=== PATIENT | male | born 1955 | race Caucasian/White ===

== ENCOUNTER 2020-08-06 18:11 | Emergency (ER) | payer MEDICARE, BC, SELFPAY ==
--- NOTE | ~2020-08-06 | CT_ITS ---
EXAMINATION: NONCONTRAST HEAD CT NONCONTRAST CERVICAL SPINE CT INDICATION INFORMATION: Fall. Crush injury. COMPARISON: None TECHNIQUE: Separate noncontrast CT examinations of the head and cervical spine were performed. Coronal and sagittal images were created for each examination at the technologist workstation. This CT examination was performed using dose optimization techniques as appropriate, variously including the following: *Automated exposure control *Adjustment of mA and/or kV according to patient size (this includes techniques or standardized protocols for targeted exams where dose is matched to indication/reason for exam; i.e. extremities or head) *Use of iterative reconstruction technique DLP: 1166 mGy-cm FINDINGS: Head: There is no evidence of acute intracranial hemorrhage or territorial infarction. No abnormal mass effect or midline shift is seen. [place] to white matter differentiation is well preserved. No extra-axial fluid collections are identified. No hydrocephalus. No significant volume loss. There is no abnormal attenuation within the brain parenchyma. No acute osseous or soft tissue abnormality. The mastoid air cells and visualized portions of the paranasal sinuses are well aerated. Cervical spine: There is anatomic alignment of the vertebral bodies and posterior elements. The atlantoaxial and atlantooccipital articulations are intact. Vertebral body heights are maintained. There is multilevel intervertebral disc space narrowing with endplate osteophyte formation and facet arthropathy. Left facet fusion at C3-C4. No evidence of acute fracture. No prevertebral soft tissue swelling. Visualized portions of the lung apices are unremarkable. The thyroid gland is unremarkable. CT/CT cervical spine wo con IMPRESSION: 1. No acute intracranial finding. 2. No fracture or malalignment of the cervical spine. Mild degenerative changes.
--- NOTE | ~2020-08-06 | CT_ITS ---
EXAMINATION: CT CHEST, ABDOMEN AND PELVIS WITH CONTRAST CLINICAL INFORMATION: Trauma COMPARISON: None. TECHNIQUE: Multidetector volumetric CT imaging of the chest, abdomen and pelvis was obtained after the administration of 85 mL of intravenous Omnipaque 350 without immediate adverse reactions. [This CT examination was performed using dose optimization techniques as appropriate, variously including the following: *Automated exposure control *Adjustment of mA and/or kV according to patient size (this includes techniques or standardized protocols for targeted exams where dose is matched to indication/reason for exam; i.e. extremities or head) *Use of iterative reconstruction technique] DLP: 1326 mGy-cm. FINDINGS: CT CHEST: Lungs: Linear atelectasis at both lung bases. Central bronchial airways are open. Mediastinum: Heart size is normal. No pericardial effusion. Heavy calcification of coronary arteries. Moderate calcification of thoracic aorta. No aneurysm or dissection of aorta. Shotty subcentimeter lymph nodes in the pretracheal retrovascular space. No significant lymphadenopathy. Thyroid is unremarkable. Pleura: There is no pleural effusion. No pleural mass or thickening. Axilla: No lymphadenopathy. CT ABDOMEN AND PELVIS: Liver, Gallbladder and Biliary Tree: The liver is normal in size, shape, and attenuation. No focal hepatic lesion or biliary ductal dilatation is present. The gallbladder is unremarkable with no evidence of radiopaque gallstones, gallbladder wall thickening, or obvious pericholecystic inflammatory changes. Pancreas: No acute change of the pancreas. No mass. No pancreatic duct dilatation. Spleen: Spleen normal in size and contour. No focal lesion. Adrenal Glands: Adrenal glands are normal in size. No focal mass. Kidneys and Ureters: The kidneys are normal in size, shape, and attenuation. No hydronephrosis, hydroureter, or calculi seen. No perinephric stranding. Bladder: Unremarkable. Gastrointestinal Tract: Status post right hemicolectomy. Colonic enteric anastomosis at the hepatic flexure intact. No acute abnormality of the bowel. There are scattered diverticula of the sigmoid colon and left colon. There is no diverticulitis. There is no bowel wall thickening /edema. There is no bowel obstruction. There is a moderate volume of stool in the colon. The small bowel loops are unremarkable. The stomach is normal. There is no hiatal hernia. Mesentery: No focal inflammation. No free fluid. No free air. Abdominal Wall: No significant hernia is appreciated. Lymph Nodes: Normal. Vascular: Scattered vascular calcifications of the wall of aorta. There is no aneurysm. Pelvic Viscera: Unremarkable. Osseous Structures: No displaced fracture. There is however a nondisplaced cortical fracture of the left anterior fifth rib. There is degenerative spondylosis of the spine. There is significant disc height narrowing, vacuum disc phenomena, endplate spurs and endplate spurring at L1-L2 and L2-L3 discs levels. CT/CT abdomen pelvis w con IMPRESSION: 1. Dependent atelectasis both lung bases. 2. There is a nondisplaced fracture of the left anterior fifth rib. There is no other fracture of the chest, abdomen or pelvis. 3. No acute abnormality of the abdomen or pelvis.
[2020-08-06 20:19] VITALS: BP 136/80; PULSE 70; RESP 18; TEMP 37.7; O2SAT 95
[2020-08-06 20:33] VITALS: BP 136/80; PULSE 70; RESP 16; TEMP 37.7; O2SAT 98; BMI 27.8
--- NOTE | 2020-08-06 21:44 | ED_ITS ---
HPI - Fall General Chief Complaint: Fall Stated Complaint: fall Source: patient Mode of arrival: ambulatory Limitations: no limitations History of Present Illness HPI Narrative: 64-year-old male presents for chest pain and neck pain after a slip and fall on the ice. He was carrying a television, slipped, fell backw ards, and the television landed on his chest and abdomen. It is difficult for him to move, take a deep breath, the pain radiates across his abdomen at the epigastric and diaphragmatic area. He does not report losing consciousness, hitting his head, denies lower back pain, symptoms indicating cauda equina, loss of sensation to the extremities, changes in vision, headache, loss of hearing, nausea, vomiting, fevers or chills. MD complaint: fall Onset (ago): hour(s) (Within the hour of arrival) Fall from: standing Fall witnessed: yes, by family Place fall occurred: home Loss of consciousness: none Prolonged down time: no Symptoms prior to fall: none Context: tripped/slipped Location of injury: neck, chest and abdomen Severity: severe Severity scale (1-10): 10 Quality: sharp, stabbing and aching Associated symptoms (after fall): neck pain, chest pain and abdominal pain Related Data Previous Rx's Medication Instructions Recorded oxycodone 5 mg PO Q6H PRN #20 tab 08/07/20 polyethylene glycol 3350 [Miralax] 17 g PO BID #510 g 08/07/20 Allergies Allergy/AdvReac Type Severity Reaction Status Date / Time No Known Allergies Allergy Unverified 03/04/20 18:25 Review of Systems Review of Systems: Constitutional: No Fever, No Chills ENT/Mouth: No Ear Pain, No Hoarseness, No sore throat Eyes: No Eye Pain, No Swelling, No Redness, No Foreign Body Cardiovascular: No Chest Pain, No SOB Respiratory: No Cough, No Dyspnea Gastrointestinal: No Nausea, No Vomiting, No Diarrhea, No abdominal Pain Genitourinary: No Dysuria, No Hematuria Musculoskeletal: positive chest, abdomen and neck pain, No Myalgias, No Joint Swelling Skin: No Skin lacerations, No rash Neuro: No Weakness, No Numbness, No Paresthesias, No Loss of Consciousness, No Dizziness, No Headache Psych: No Anxiety/Panic, No Depression Heme/Lymph: no easy bruising, no Lymphadenopathy Endocrine: No Polyuria, No Polydipsia Yes all other systems are reviewed and are negative [facility] [place] Past Medical History Attestation statement: The following information was validated with the patient. Source: old records reviewed Surgical History History of colon surgery Hx of appendectomy Hx of heart artery stent Social History Social History Advance Directives: No Advance Directives Information Provided: Yes Physical Exam Vital Signs: Vital Signs: Last Vital Signs Temp 99.8 F 08/06/20 20:33 Pulse 71 08/07/20 00:00 Resp 18 08/07/20 00:00 BP 158/92 H 08/07/20 00:00 Pulse Ox 99 08/07/20 00:00 Body Mass Index 27.8 Appearance: Alert. Oriented X3. Moderate distress. Head: Normal external exam. Normocephalic. Atraumatic. No Bacon signs noted. No raccoon eyes noted Eyes: PERRLA. EOMI. Conjunctiva and sclera normal. Eyelids normal. ENT: TM's Normal. Pharynx normal. Uvula midline. Moist mucous membranes. No tr ismus noted. No drooling noted. No muffled voice noted. Neck: Normal inspection. Neck supple. No adenopathy. Thyroid Normal. No meningeal signs. No neck mass noted. No vertebral tenderness noted, no step- off. Pain to sternocleidomastoid muscles. CVS: Normal heart rate and rhythm. Heart sound normal. No murmurs noted. Pulses equal to all extremities. Respiratory: Chest wall tenderness to palpation, particularly over the epigastric and right ribs at the midclavicular line 5th intercostal space, No respiratory distress. Painless inspiration. Breath sounds normal. No wheezes/rales/rhonchi noted. No accessory muscle usage noted or decreased air movement noted. Abdomen: Soft and tender to palpation right upper epigastric left upper quadrants, Bowel sounds normal in all 4 quadrants. No distention noted. No organomegaly noted. No visible injury noted. Back: Positive bilateral CVA tenderness. Decreased range of motion secondary to pain flexion extension and turning to the right Skin: Skin warm and dry. Normal skin color. Normal skin turgor. No rashes/lesions/lacerations noted. Extremities: No lower extremity edema. Extremities exhibit normal range of motion. Extremities nontender. Neuro: cranial nerves 2-12 intact, no focal neural deficits, strength 5/5 to all extremities, No motor deficit. No sensory deficit. Patellar Reflexes normal. Course Course Course Narrative: 64-year-old male presents with neck pain, chest pain, pain across the diaphragm after a slip and fall on the ice. He was carrying a large television, his feet went out from under him landed on his back and the television crushed his chest and abdomen. He does not report hitting his head or losing consciousness but has significant tenderness to palpation to the left chest wall, epigastric, right upper quadrant and left upper quadrant of the abdomen. Based on the significance of his injury we will order CT scan of the head, cervical spine, chest and abdomen. CT of head, cervical spine and abdomen negative for acute findings. CT of chest shows left 5th rib fracture. Will treat with opioid for pain management, detailed description regarding risks and benefits of this medication discussed with patient. Patient will follow-up with primary care physician later this week. MDM - Fall Differential Diagnosis Differential diagnosis: Likely fracture, compression fracture and concussion without loss of consciousness Medical Records Attestation: I reviewed the patient's medical records. Lab Data Attestation: I reviewed the patient's lab results. Result diagrams: 08/06/20 22:05 08/06/20 22:05 Labs: Lab Results 08/06/20 08/06/20 08/06/20 Range/Units 22:05 22:05 22:05 WBC 9.7 (4.8-10.8) X10*3/uL RBC 5.15 (4.60-5.80) X10*6/uL Hgb 15.5 (14.0-18.0) g/dl Hct 46.0 (42-52) % MCV 89.3 (80-98) fL MCH 30.1 (27.0-33.0) pg MCHC 33.7 (31.0-36.0) g/dl RDW 14.4 (11.0-16.0) % Plt Count 363 (160-400) X10*3/uL MPV 9.1 L (9.4-12.4) fL Immature Gran % (Auto) 0.3 (0.0-0.4) % Neut % (Auto) 78.0 H (45-73) % Lymph % (Auto) 12.8 L (20-40) % [place] % (Auto) 7.9 (2-11) % Eos % (Auto) 0.5 (0-4) % Baso % (Auto) 0.5 (0-2) % Lymph # (Auto) 1.2 (1.2-4.9) X10*3/uL [place] # (Auto) 0.8 (0.1-1.2) X10*3/uL Eos # (Auto) 0.1 (0.0-0.4) X10*3/uL Baso # (Auto) 0.1 (0.0-0.2) X10*3/uL Abs Immat Gran (auto) 0.03 (0.00-0.03) X10*3/uL Absolute Neuts (auto) 7.6 (2.0-8.3) X10*3/uL Absolute Nucleated RBC 0.000 (0.0-0.012) X10*3/uL Nucleated RBC % (auto) 0.0 (0.0-0.2) /100WBC PT (10.8-13.0) SEC INR (0.9-1.1) APTT (24.1-38.0) SEC Sodium 143 (135-145) mmol/L Potassium 4.4 (3.3-5.1) mmol/L Chloride 104 (96-108) mmol/L Carbon Dioxide 27 (22-29) mmol/L Anion Gap 16 (12-20) BUN 16 (9-16) mg/dL Creatinine 1.32 (0.5-1.4) mg/dL Estim Creat Clear Calc 64.2 Estimated GFR 54 Random Glucose 92 (60-115) mg/dL Calcium 9.8 (8.4-10.2) mg/dL Total Creatine Kinase 211 H (38-174) U/L Troponin I High Sens 14.6 (<3.5-35.0) ng/L Urine Color Urine Appearance Urine pH (5.0-8.0) Ur Specific [place] (1.005-1.025) Urine Protein (NEG-TRACE) MG/DL Urine Glucose (UA) (NEG) MG/DL Urine Ketones (NEG) MG/DL Urine Blood (NEG) Urine Nitrite (NEG) Ur Leukocyte Esterase (NEG) Urine RBC (0) /HPF Urine WBC (0-4) /HPF Ur Squamous Epith Cells /LPF Urine Bacteria /LPF 08/06/20 08/06/20 Range/Units 22:47 22:47 WBC (4.8-10.8) X10*3/uL RBC (4.60-5.80) X10*6/uL Hgb (14.0-18.0) g/dl Hct (42-52) % MCV (80-98) fL MCH (27.0-33.0) pg MCHC (31.0-36.0) g/dl RDW (11.0-16.0) % Plt Count (160-400) X10*3/uL MPV (9.4-12.4) fL Immature Gran % (Auto) (0.0-0.4) % Neut % (Auto) (45-73) % Lymph % (Auto) (20-40) % [place] % (Auto) (2-11) % Eos % (Auto) (0-4) % Baso % (Auto) (0-2) % Lymph # (Auto) (1.2-4.9) X10*3/uL [place] # (Auto) (0.1-1.2) X10*3/uL Eos # (Auto) (0.0-0.4) X10*3/uL Baso # (Auto) (0.0-0.2) X10*3/uL Abs Immat Gran (auto) (0.00-0.03) X10*3/uL Absolute Neuts (auto) (2.0-8.3) X10*3/uL Absolute Nucleated RBC (0.0-0.012) X10*3/uL Nucleated RBC % (auto) (0.0-0.2) /100WBC PT 12.8 (10.8-13.0) SEC INR 1.1 (0.9-1.1) APTT 30.6 (24.1-38.0) SEC Sodium (135-145) mmol/L Potassium (3.3-5.1) mmol/L Chloride (96-108) mmol/L Carbon Dioxide (22-29) mmol/L Anion Gap (12-20) BUN (9-16) mg/dL Creatinine (0.5-1.4) mg/dL Estim Creat Clear Calc Estimated GFR Random Glucose (60-115) mg/dL Calcium (8.4-10.2) mg/dL Total Creatine Kinase (38-174) U/L Troponin I High Sens (<3.5-35.0) ng/L Urine Color YELLOW Urine Appearance CLEAR Urine pH 6.0 (5.0-8.0) Ur Specific [place] 1.015 (1.005-1.025) Urine Protein NEG (NEG-TRACE) MG/DL Urine Glucose (UA) NEG (NEG) MG/DL Urine Ketones 15 (NEG) MG/DL Urine Blood 1+ H (NEG) Urine Nitrite NEG (NEG) Ur Leukocyte Esterase NEG (NEG) Urine RBC 0-2 (0) /HPF Urine WBC 0-2 (0-4) /HPF Ur Squamous Epith Cells TRACE /LPF Urine Bacteria NONE /LPF Imaging Data CT scan of head, cervical spine, chest and abdomen.: Attestation: I personally reviewed and interpreted this imaging study as follows: Radiologist's impression: CT CHEST: Lungs: Linear atelectasis at both lung bases. Central bronchial airways are open. Mediastinum: Heart size is normal. No pericardial effusion. Heavy calcification of coronary arteries. Moderate calcification of thoracic aorta. No aneurysm or dissection of aorta. Shotty subcentimeter lymph nodes in the pretracheal retrovascular space. No significant lymphadenopathy. Thyroid is unremarkable. Pleura: There is no pleural effusion. No pleural mass or thickening. Axilla: No lymphadenopathy. CT ABDOMEN AND PELVIS: Liver, Gallbladder and Biliary Tree: The liver is normal in size, shape, and attenuation. No focal hepatic lesion or biliary ductal dilatation is present. The gallbladder is unremarkable with no evidence of radiopaque gallstones, gallbladder wall thickening, or obvious pericholecystic inflammatory changes. Pancreas: No acute change of the pancreas. No mass. No pancreatic duct dilatation. Spleen: Spleen normal in size and contour. No focal lesion. Adrenal Glands: Adrenal glands are normal in size. No focal mass. Kidneys and Ureters: The kidneys are normal in size, shape, and attenuation. No hydronephrosis, hydroureter, or calculi seen. No perinephric stranding. Bladder: Unremarkable. Gastrointestinal Tract: Status post right hemicolectomy. Colonic enteric anastomosis at the hepatic flexure intact. No acute abnormality of the bowel. There are scattered diverticula of the sigmoid colon and left colon. There is no diverticulitis. There is no bowel wall thickening /edema. There is no bowel obstruction. There is a moderate volume of stool in the colon. The small bowel loops are unremarkable. The stomach is normal. There is no hiatal hernia. Mesentery: No focal inflammation. No free fluid. No free air. Abdominal Wall: No significant hernia is appreciated. Lymph Nodes: Normal. Vascular: Scattered vascular calcifications of the wall of aorta. There is no aneurysm. Pelvic Viscera: Unremarkable. Osseous Structures: No displaced fracture. There is however a nondisplaced cortical fracture of the left anterior fifth rib. There is degenerative spondylosis of the spine. There is significant disc height narrowing, vacuum disc phenomena, endplate spurs and endplate spurring at L1-L2 and L2-L3 discs levels. CT/CT abdomen pelvis w con IMPRESSION: 1. Dependent atelectasis both lung bases. 2. There is a nondisplaced fracture of the left anterior fifth rib. There is no other fracture of the chest, abdomen or pelvis. 3. No acute abnormality of the abdomen or pelvis. Discharge Plan Discharge Clinical Impression: Fracture of rib Qualifiers: Encounter type: initial encounter Rib fracture type: single rib Fracture type: closed Laterality: right Qualified Code(s): S22.31XA - Fracture of one rib, right side, initial encounter for closed fracture Fall due to ice or snow Qualifiers: Encounter type: initial encounter Qualified Code(s): W00.9XXA - Unspecified fall due to ice and snow, initial encounter Patient Disposition: Home, Self-Care Instructions: Rib Fracture (ED), Fall Prevention (ED) Additional Instructions: You were evaluated for slip and fall with a crush injury. CT scan of head, neck, and abdomen are negative for acute findings. CT scan of the chest indicates 5th rib fracture. We prescribed oxycodone for pain management. This medication is a narcotic and has high risk for addiction and abuse. Do not drive or operate machinery while taking this medication. Please follow-up with your primary care physician this week for further care. Thank you for choosing this emergency department for evaluation. Please follow-up with primary care physician as needed. Return to the emergency department for any new, concerning, or worsening symptoms. Prescriptions: New oxycodone 5 mg tablet 5 mg PO Q6H PRN (Reason: pain) Qty: 20 RF: 0 polyethylene glycol 3350 [Miralax] 17 gram/dose powder 17 g PO BID Qty: 510 RF: 0 Interventions: ED Discharge Assessment Last Done: 08/07/20 00:44 Discharge Date/Time: 08/07/20 00:44
[2020-08-06 22:14] VITALS: BP 139/77; PULSE 72; RESP 18; O2SAT 96
[2020-08-06 22:23] LABS: Basophils Absolute Auto 0.1 X10*3/uL (0.0-0.2); Basophils Percent Auto 0.5 % (0-2); Eosinophils Absolute Auto 0.1 X10*3/uL (0.0-0.4); Eosinophils Percent Auto 0.5 % (0-4); Hemoglobin 15.5 g/dl (14.0-18.0); Imm Gran Abs Auto 0.03 X10*3/uL (0.00-0.03); Imm Gran Pct Auto 0.3 % (0.0-0.4); Lymphocytes Absolute Auto 1.2 X10*3/uL (1.2-4.9); Lymphocytes Percent Auto 12.8 % (20-40); MANUAL DIFF FLAG NO; Mean Corpuscular HGB Conc 33.7 g/dl (31.0-36.0); Mean Corpuscular Hemoglobin 30.1 pg (27.0-33.0); Mean Corpuscular Volume 89.3 fL (80-98); Mean Platelet Volume 9.1 fL (9.4-12.4); Monocytes Absolute Auto 0.8 X10*3/uL (0.1-1.2); Monocytes Percent Auto 7.9 % (2-11); Neutrophils Absolute Auto 7.6 X10*3/uL (2.0-8.3); Platelet Count 363 X10*3/uL (160-400); Red Blood Count 5.15 X10*6/uL (4.60-5.80); Red Cell Distribution Width 14.4 % (11.0-16.0); White Blood Count 9.7 X10*3/uL (4.8-10.8)
[2020-08-06 22:51] LABS: Anion Gap 16 (12-20); Blood Urea Nitrogen 16 mg/dL (9-16); Calcium 9.8 mg/dL (8.4-10.2); Carbon Dioxide 27 mmol/L (22-29); Chloride 104 mmol/L (96-108); Creatinine Clr Calc Pharmacy 64.2; Estimated Glomerular Filt Rate 54; Glucose Random 92 mg/dL (60-115); Potassium 4.4 mmol/L (3.3-5.1); Sodium 143 mmol/L (135-145)
[2020-08-06 22:57] LABS: Troponin-I High Sensitivity 14.6 ng/L (<3.5-35.0)
[2020-08-06 23:05] LABS: Glucose Urine UA NEG (NEG); Leukocyte Esterase Urine NEG (NEG); Nitrite Urine NEG (NEG); Specific Gravity - Urine 1.015 (1.005-1.025); Urine Blood 1+ (NEG); Urine Ketones 15 MG/DL (NEG); Urine Protein NEG (NEG-TRACE)
[2020-08-06 23:12] LABS: INTERNATIONAL NORM RATIO 1.1 (0.9-1.1); Prothrombin Time 12.8 SEC (10.8-13.0)
[2020-08-06 23:13] LABS: Appearance Urine CLEAR; Color Urine YELLOW
[2020-08-06 23:15] LABS: Partial Thromboplastin Time 30.6 SEC (24.1-38.0)
[2020-08-06] MEDS: iohexoL 350 MG/ML 100 ML INFUS..BTL 85 ML IV (23:26)
[2020-08-06 23:34] LABS: RBC Urine 0-2 /HPF (0); Squamous Epithelial Cell Urine TRACE /LPF; WBC Urine 0-2 /HPF (0-4)
[2020-08-07] VITALS: BP 158/92; PULSE 71; RESP 18; O2SAT 99
[2020-08-07] MEDS: 0.9 % Sodium Chloride 1,000 ML 999 ML IVCONT ×2 (00:38→00:39)
--- NOTE | 2020-08-07 00:41 | PC.NURSE ---
pt walking around in his room with no sob, steady gait.
== END 2020-08-07 00:44 | disposition home or self-care (01) ==
PROVIDERS: Nurse Practitioner Family; Emergency Provider Internal Medicine; PCP Internal Medicine
DX: S22.31XA Fracture of one rib, right side, initial encounter for closed fracture (principal); R07.81 Pleurodynia; R10.9 Unspecified abdominal pain; G44.309 Post-traumatic headache, unspecified, not intractable; W00.0XXA Fall on same level due to ice and snow, initial encounter; Y93.01 Activity, walking, marching and hiking; Y92.410 Unspecified street and highway as the place of occurrence of the external cause; Y99.9 Unspecified external cause status; Z79.899 Other long term (current) drug therapy
CPT/HCPCS: 36415; 70450; 71260; 72125; 74177; 80048; 81001; 81003; 82550; 84484; 85025; 85610; 85730; 96361; 96374; 96375; 99284; Q9967